=== PATIENT | male | born 1965 | race Caucasian/White ===

== ENCOUNTER 2016-05-07 12:14 | Emergency (ER) | payer MEDICARE, MEDICAID ==
[~2016-05-07] VITALS: Ht 167.6 cm; Wt 10.0 kg
[~2016-05-07 12:14] MED LIST: ANDROGEL75 G1 TD; ASPIR 8181 MG ORAL; ATORVASTATIN CA40 MG ORAL; BUPROPION HCL150 M3 ORAL; CIPRO500 MG PO; COZAAR25 MG ORAL; DIPHENOXYLATE-1 EACH PO; FANAPT8 MG ORAL; FERROUS SULFAT325 MG ORAL; GABAPENTIN600 MG ORAL; GABAPENTIN800 MG ORAL; HUMALOG100 UNIT/4 SUBQ; HYDROXYZINE PA100 MG ORAL; IBUPROFEN600 MG ORAL; INTELENCE200 MG ORAL; ISENTRESS400 MG ORAL; JANUVIA25 MG ORAL; KLONOPIN1 MG ORAL; LITHIUM CARBON300 MG ORAL; LITHIUM CARBON600 MG PO; METFORMIN HCL1000 M1 ORAL; METRONIDAZOLE500 MG ORAL; MULTIVITAMINS1 EAC2 ORAL; NOVOLOG100 UNIT/3 SUBQ; OXANDROLONE10 MG PO; OYSTER SHELL 51 EAC1 PO; PERFOROMIS20 MCG/2 M IH; PRO-AIR PO; PROCHLORPERAZINE5 MG ORAL; QUETIAPINE FUM400 MG ORAL; SARAFEM10 MG ORAL; SEROQUEL25 MG ORAL; SEROSTIM6 M1 SQ; STARLIX60 MG ORAL; STIOLTO RESPIMAT4 GM IH; SUDOGEST30 MG PO; TOUJEO SOL300 UNIT/1 SQ; TRUVADA 200 MG1 EAC1 ORAL; VALIUM5 MG ORAL; VENTOLIN HFA18 GM INH; VICTOZA 2-0.6 MG/0.1 SUBQ; VICTOZA 3-0.6 MG/0.1 SQ; VITAMIN D22000 UNIT PO; ZOFRAN ODT4 MG ORAL; [UNRECOGNIZED DRUG - OTHER] SUBQ; triumeq PO
[2016-05-07 12:45] VITALS: BP 140/80
[2016-05-07] MEDS ORDERED: Morphine Sulfate 4mg/ml Inj IM ONE (13:00)
--- NOTE | 2016-05-07 13:04 | Emergency Room Report ---
History of Present Illness General Chief Complaint: Abdominal Pain Source: Patient Present Illness HPI Patient present with complaints of abdominal discomfort swelling to the right side of his abdomen Patient was at [facility] yesterday the patient had been overnight stay He has CAT scan report along with blood results Patient reports that he was told he had pancreatitis The abdominal discomfort has been ongoing for the past several weeks Denies any chest pain or shortness of breath denies any diarrhea Allergies: Coded Allergies: No Known Allergies (Unverified , 06/15/13) Patient History Past Medical History: see triage record Pertinent Family History: none Reviewed Nursing Documentation: PMH: Agreed, PSxH: Agreed Nursing Documentation-PMH Hx Cardiac Problems: No Hx Hypertension: No Hx Pacemaker: No Hx Asthma: No Hx COPD: No Hx Diabetes: Yes Hx Cancer: No Hx Gastrointestinal Problems: Yes - HIV Hx Dialysis: No History Of Psychiatric Problem: No Hx Neurological Problems: No Hx Cerebrovascular Accident: No Hx Seizures: No Review of Systems All Other Systems: negative except mentioned in HPI Physical Exam Vital Signs Date Time Temp Pulse Resp B/P Pulse Ox O2 Delivery O2 Flow Rate FiO2 05/07/16 12:38 98.1 80 16 140/80 98 Room Air Sp02 EP Interpretation: reviewed, normal General Appearance: well appearing, no apparent distress Head: normocephalic, atraumatic Eyes: bilateral eye EOMI, bilateral eye PERRL ENT: hearing grossly normal, normal pharynx, TMs + canals normal, uvula midline Neck: full range of motion, supple, no meningismus, no bony tend Respiratory: lungs clear, normal breath sounds, no rhonchi, no respiratory distress, no retraction, no accessory muscle use Cardiovascular #1: normal peripheral pulses, regular rate, rhythm, no edema, no gallop, no JVD, no murmur Gastrointestinal: normal bowel sounds, non tender, soft, no mass, non-distended , no guarding, no hernia, no pulsatile mass, no rebound, hepatomegaly Genitourinary: no CVA tenderness Musculoskeletal: normal inspection Neurologic: oriented x3, responsive, 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 III-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 nml as tested, motor strength/ tone normal, sensory intact Psychiatric: mood/affect normal Skin: normal color, no rash, warm/dry, palpation normal Lymphatic: normal inspection, no adenopathy Medical Decision Making Diagnostic Impression: Primary Impression: Abdominal pain ER Course With the history exam and presentation, multiple differentials considered, including but not limited to appendicitis, gastritis, cholecystitis, diverticulitis I did make contact with the patient's primary physician reports that patient has had fairly significant outpatient workup has had hepatomegaly and similar findings which have been worked up outpatient Patient's CT from yesterday outside facility does not show any acute pathology therefore one was not repeated today patient's blood work including lipase are at baseline levels today patient does feel better and at this time will have close outpatient followup Labs Test 05/07/16 12:55 White Blood Count 10.1 K/UL (4.8-10.8) Red Blood Count 5.37 M/UL (4.70-6.10) Hemoglobin 15.2 G/DL (14.2-18.0) Hematocrit 50.2 % (42.0-52.0) Mean Corpuscular Volume 93 FL (80-99) Mean Corpuscular Hemoglobin 28.3 PG (27.0-31.0) Mean Corpuscular Hemoglobin Concent 30.3 G/DL (32.0-36.0) Red Cell Distribution Width 13.9 % (11.6-14.8) Platelet Count 235 K/UL (150-450) Mean Platelet Volume 8.0 FL (6.5-10.1) Neutrophils (%) (Auto) 59.3 % (45.0-75.0) Lymphocytes (%) (Auto) 30.0 % (20.0-45.0) Monocytes (%) (Auto) 5.3 % (1.0-10.0) Eosinophils (%) (Auto) 4.3 % (0.0-3.0) Basophils (%) (Auto) 1.0 % (0.0-2.0) Sodium Level 135 mEQ/L (135-145) Potassium Level 4.0 mEQ/L (3.4-4.9) Chloride Level 97 mEQ/L (98-107) Carbon Dioxide Level 21 mEQ/L (20-30) Anion Gap 17 (5-15) Blood Urea Nitrogen 14 mg/dL (7-23) Creatinine 1.7 mg/dL (0.7-1.2) Estimat Glomerular Filtration Rate 42.7 mL/min (>60) Glucose Level 255 mg/dL (74-106) Calcium Level 9.3 mg/dL (8.6-10.2) Total Bilirubin 0.3 mg/dL (0.0-1.2) Aspartate Amino Transf (AST/SGOT) 38 U/L (5-40) Alanine Aminotransferase (ALT/SGPT) 45 U/L (3-41) Alkaline Phosphatase 82 U/L (40-129) Total Protein 7.0 g/dL (6.6-8.7) Albumin 4.0 g/dL (3.5-5.2) Globulin 3.0 g/dL Albumin/Globulin Ratio 1.3 (1.0-2.7) Lipase 55 U/L (< 60) Last Vital Signs Date Time Temp Pulse Resp B/P Pulse Ox O2 Delivery O2 Flow Rate FiO2 05/07/16 12:45 98.1 80 16 140/80 98 Room Air Status: improved Disposition: HOME, SELF-CARE Condition: Improved Additional Instructions: Patient is provided with the discharge instructions notified to follow up with primary doctor in the next 2-3 days otherwise return to the er with any worsening symptoms. Please note that this report is being documented using [employer] technology. This can lead to erroneous entry secondary to incorrect interpretation by the dictating instrument. LUH PARKS D.O. May 07, 2016 13:04
[2016-05-07 13:13] LABS: EOSINOPHILS % (AUTO) 4.3 % (0.0-3.0); MEAN CORPUSCULAR HEMOGLOBIN 28.3 PG (27.0-31.0); MEAN CORPUSCULAR HGB CONC 30.3 G/DL (32.0-36.0); MEAN CORPUSCULAR VOLUME 93 FL (80-99); MONOCYTES % (AUTO) 5.3 % (1.0-10.0); NEUTROPHILS % (AUTO) 59.3 % (45.0-75.0); PLATELET COUNT 235 K/UL (150-450); RED BLOOD COUNT 5.37 M/UL (4.70-6.10); RED CELL DISTRIBUTION WIDTH 13.9 % (11.6-14.8); WHITE BLOOD COUNT 10.1 K/UL (4.8-10.8)
[2016-05-07 13:45] LABS: CREATININE 1.7 mg/dL (0.7-1.2); GLOMERULAR FILTRATION RATE 42.7 mL/min (>60)
[2016-05-07 13:46] LABS: ALBUMIN/GLOBULIN RATIO 1.3 (1.0-2.7); CALCIUM 9.3 mg/dL (8.6-10.2)
[2016-05-07 14:10] VITALS: BP 140/80
== END 2016-05-07 14:11 | disposition home or self-care (01) ==
LOC: EMR 13:30
DX: R10.9 Unspecified abdominal pain (principal); E11.9 Type 2 diabetes mellitus without complications
CPT/HCPCS: 36415; 80053; 83690; 85025; 96372; 99283; J2270

== ENCOUNTER → 2016-05-13 | Outpatient (CLI) | payer MEDICARE, MEDICAID ==
[2016-05-13 14:31] VITALS: BP 149/108
--- NOTE | 2016-05-13 15:40 | GI Initial Consult Note ---
JennLynette Estuardo NHimanshuPHimanshu 05/13/16 1540: History of Present Illness General Date patient seen: May 13, 2016 Time patient seen: 15:27 Reason for Consultation: FATTY LIVER Present Illness HPI 51 year old male patient whom recently discharged from the ER for c/o of abdominal pain and discomfort to the ride side of his abdomen presents today with evaluation of fatty liver. According to the ER report, the patient's primary physician reports that patient has had fairly significant outpatient workup has had hepatomegaly and similar findings which have been worked up outpatient. Patient's CT from [facility] outside facility does not show any acute pathology therefore his management was referred to outpatient. Pt c/o of right sided abdominal pain, GERD, diarrhea ~ 5-6 daily x 3 years, nausea, odynophagia , and abdominal bloating. Pt reports possible pancreatitis? The abdominal discomfort has been ongoing for the past several weeks Denies any chest pain or shortness of breath denies any diarrhea. Has currently been taking Z-pack, levaquin, and doxycyline. Last colonoscopy was 2 years ago with unremarkable results. 05/07/16 ER C 04/3016 [facility], APCT unremarkable - Glucose > 500 CD4 = 600 reported by patient Home Meds Reported Medications Sitagliptin* (JANUVIA*) 25 Mg Tablet, 100 MG ORAL DAILY, TAB 12/01/15 Metformin Hcl* (METFORMIN HCL*) 1,000 Mg Tablet, 1000 MG ORAL bid, TAB 12/01/15 Quetiapine Fumarate* (QUETIAPINE FUMARATE*) 400 Mg Tablet, 600 MG ORAL hs, TAB 12/01/15 Gabapentin* (GABAPENTIN*) 800 Mg Tablet, 1800 MG ORAL hs, TAB 12/01/15 Ciprofloxacin* (CIPRO*) 500 Mg Tablet, 500 MG PO BID, #14 TAB 12/01/15 Metronidazole* (FLAGYL*) 500 Mg Tablet, 500 MG ORAL EVERY 8 HOURS, TAB 12/01/15 Tesamorelin Acetate (EGRIFTA) 2 Mg Vial, 1 MG SUBQ DAILY, VIAL 12/01/15 Bupropion Hcl* (BUPROPION HCL SR*) 150 Mg Tablet.er, 300 MG ORAL am, TAB 12/01/15 Calcium Carbonate/Vitamin D3 (OYSTER SHELL 500 MG + VIT D TB) 1 Each Tablet, 1 EACH PO daily, TAB 12/01/15 Iloperidone (FANAPT) 8 Mg Tablet, 16 MG ORAL hs, #60 TAB 0 Refills 12/01/15 Prochlorperazine Maleate* (COMPAZINE*) 5 Mg Tablet, 10 MG ORAL Q6H, TAB 0 Refills 12/01/15 Formoterol Fumarate (PERFOROMIST) 20 Mcg/2 Ml Vial.neb, 20 MCG IH bid, VIAL 12/01/15 Ferrous Sulfate* (FERROUS SULFATE*) 325 Mg Tablet, 325 MG ORAL TWICE A DAY, #60 TAB 0 Refills 12/01/15 Nateglinide* (STARLIX*) 60 Mg Tablet, 120 MG ORAL THREE TIMES A DAY, TAB 12/01/15 Diphenoxylate Hcl/Atropine (DIPHENOXYLATE-ATROPINE TABLET) 1 Each Tablet, 2 EACH PO Q6H, TAB 12/01/15 Tiotropium Br/Olodaterol HCl (Stiolto Respimat Inhal [place]) 4 Gm Mist.inhal, 4 GM IH dailt 12/01/15 Liraglutide (VICTOZA 3-DAVID) 0.6 Mg/0.1 Ml Pen.injctr, 1.8 MG SQ DAILY, EA 0 Refills 12/01/15 Oxandrolone (OXANDROLONE) 10 Mg Tablet, 10 MG PO bid, TAB 12/01/15 Atorvastatin Calcium* (ATORVASTATIN CALCIUM*) 40 Mg Tablet, 40 MG ORAL BEDTIME, TAB 12/01/15 Aspirin* (ASPIR 81*) 81 Mg Tablet.dr, 81 MG ORAL DAILY, TAB 12/01/15 Multivitamins* (MULTIVITAMINS*) 1 Each Tablet, 1 TAB ORAL DAILY, TAB 0 Refills 12/01/15 Albuterol Sulfate (VENTOLIN HFA) 18 Gm Hfa.aer.ad, 2 PUFFS INH EVERY 6 HOURS, # 18 GM 0 Refills 12/01/15 Pseudoephedrine Hcl (SUDOGEST) 30 Mg Tablet, 30 MG PO Q6H, TAB 12/01/15 Ergocalciferol (Vitamin D2) (VITAMIN D2) 2,000 Unit Tablet, 46901 UNIT PO monthly, TAB 12/01/15 Hydroxyzine Pamoate* (HYDROXYZINE PAMOATE*) 100 Mg Capsule, 50 MG ORAL tid, #20 TAB 0 Refills 12/01/15 Insulin Glargine,Hum.rec.anlog (Toujeo Solostar) 300 Unit/1 Ml Insuln.pen, 70 UNIT SQ daily, EA 12/01/15 Insulin Lispro (HUMALOG) 100 Unit/1 Ml Cartridge, 16 SUBQ tid, #1 UNITS 0 Refills 12/01/15 Somatropin (SEROSTIM) 6 Mg Vial, 6 MG SQ daily, VIAL 12/01/15 Losartan Potassium* (COZAAR*) 25 Mg Tablet, 50 MG ORAL bid, TAB 05/20/14 Clonazepam* (KLONOPIN*) 1 Mg Tablet, MG ORAL hs, #15 TAB 0 Refills 06/15/13 [place] Carbonate (LITHIUM CARBONATE) 600 Mg Capsule, 900 MG PO QHS, CAP 06/15/13 [place] Carbonate* (LITHIUM*) 300 Mg Capsule, 600 MG ORAL am, CAP 0 Refills 06/15/13 Med list reviewed/reconciled: Yes Allergies: Coded Allergies: No Known Allergies (Unverified , 06/15/13) Patient History History Provided By: Patient, Medical Record PMH Narrative Hx Cardiac Problems: No Hx Hypertension: No Hx Pacemaker: No Hx Asthma: No Hx COPD: Asthma Hx Diabetes: Yes Hx Cancer: No Hx Gastrointestinal Problems: Yes - HIV, IBS, GERD Hx Dialysis: No History Of Psychiatric Problem: Yes, depression, nervous breakdown Hx Neurological Problems: No Hx Cerebrovascular Accident: No Hx Seizures: No PSHx 2016 cholecystectomy Social History: Reports: other - Pt has quit ETOH and smoking 6.5 years ago., Denies: alcohol use, drug use, smoking Review of Systems All Other Systems: negative except mentioned in HPI Physical Exam Vital Signs Date Time Temp Pulse Resp B/P Pulse Ox O2 Delivery O2 Flow Rate FiO2 05/13/16 14:31 98.1 110 20 149/108 96 Sp02 EP Interpretation: reviewed General Appearance: well appearing, no apparent distress, alert Head: normocephalic EENT: PERRL/EOMI, normal ENT inspection Neck: full range of motion, supple Respiratory: normal inspection, chest non-tender, lungs clear Gastrointestinal: distended, tenderness, hepatomegaly, other - abdominal bloating Rectal: deferred Musculoskeletal: normal inspection, back normal Neurologic: normal inspection, alert, oriented x3, responsive Psychiatric: normal inspection, judgement/insight normal, memory normal Skin: normal inspection, normal color, no rash Lymphatic: normal inspection, no adenopathy GI: Plan Problems: (1) Diarrhea (2) IBS (irritable bowel syndrome) (3) Diabetes 1.5, managed as type 1 (4) HIV (human immunodeficiency virus infection) (5) GERD (gastroesophageal reflux disease) (6) Asthma (7) Depressed (8) HTN (hypertension) (9) Abdominal bloating (10) Fatty liver (11) Odynophagia Plan avoid lactulose refer to Dr. Menjivar for fibroscan refer for DM mgmt ordered breathtest @ [facility] ordered videoswallow study @ [facility] RTC x 2 weeks post procedures Seen with Dr. Crain. CAMILO CRAIN 05/14/16 0945: History of Present Illness Present Illness Home Meds Reported Medications Sitagliptin* (JANUVIA*) 25 Mg Tablet, 100 MG ORAL DAILY, TAB 12/01/15 Metformin Hcl* (METFORMIN HCL*) 1,000 Mg Tablet, 1000 MG ORAL bid, TAB 12/01/15 Quetiapine Fumarate* (QUETIAPINE FUMARATE*) 400 Mg Tablet, 600 MG ORAL hs, TAB 12/01/15 Gabapentin* (GABAPENTIN*) 800 Mg Tablet, 1800 MG ORAL hs, TAB 12/01/15 Ciprofloxacin* (CIPRO*) 500 Mg Tablet, 500 MG PO BID, #14 TAB 12/01/15 Metronidazole* (FLAGYL*) 500 Mg Tablet, 500 MG ORAL EVERY 8 HOURS, TAB 12/01/15 Tesamorelin Acetate (EGRIFTA) 2 Mg Vial, 1 MG SUBQ DAILY, VIAL 12/01/15 Bupropion Hcl* (BUPROPION HCL SR*) 150 Mg Tablet.er, 300 MG ORAL am, TAB 12/01/15 Calcium Carbonate/Vitamin D3 (OYSTER SHELL 500 MG + VIT D TB) 1 Each Tablet, 1 EACH PO daily, TAB 12/01/15 Iloperidone (FANAPT) 8 Mg Tablet, 16 MG ORAL hs, #60 TAB 0 Refills 12/01/15 Prochlorperazine Maleate* (COMPAZINE*) 5 Mg Tablet, 10 MG ORAL Q6H, TAB 0 Refills 12/01/15 Formoterol Fumarate (PERFOROMIST) 20 Mcg/2 Ml Vial.neb, 20 MCG IH bid, VIAL 12/01/15 Ferrous Sulfate* (FERROUS SULFATE*) 325 Mg Tablet, 325 MG ORAL TWICE A DAY, #60 TAB 0 Refills 12/01/15 Nateglinide* (STARLIX*) 60 Mg Tablet, 120 MG ORAL THREE TIMES A DAY, TAB 12/01/15 Diphenoxylate Hcl/Atropine (DIPHENOXYLATE-ATROPINE TABLET) 1 Each Tablet, 2 EACH PO Q6H, TAB 12/01/15 Tiotropium Br/Olodaterol HCl (Stiolto Respimat Inhal [place]) 4 Gm Mist.inhal, 4 GM IH dailt 12/01/15 Liraglutide (VICTOZA 3-DAVID) 0.6 Mg/0.1 Ml Pen.injctr, 1.8 MG SQ DAILY, EA 0 Refills 12/01/15 Oxandrolone (OXANDROLONE) 10 Mg Tablet, 10 MG PO bid, TAB 12/01/15 Atorvastatin Calcium* (ATORVASTATIN CALCIUM*) 40 Mg Tablet, 40 MG ORAL BEDTIME, TAB 12/01/15 Aspirin* (ASPIR 81*) 81 Mg Tablet.dr, 81 MG ORAL DAILY, TAB 12/01/15 Multivitamins* (MULTIVITAMINS*) 1 Each Tablet, 1 TAB ORAL DAILY, TAB 0 Refills 12/01/15 Albuterol Sulfate (VENTOLIN HFA) 18 Gm Hfa.aer.ad, 2 PUFFS INH EVERY 6 HOURS, # 18 GM 0 Refills 12/01/15 Pseudoephedrine Hcl (SUDOGEST) 30 Mg Tablet, 30 MG PO Q6H, TAB 12/01/15 Ergocalciferol (Vitamin D2) (VITAMIN D2) 2,000 Unit Tablet, 65322 UNIT PO monthly, TAB 12/01/15 Hydroxyzine Pamoate* (HYDROXYZINE PAMOATE*) 100 Mg Capsule, 50 MG ORAL tid, #20 TAB 0 Refills 12/01/15 Insulin Glargine,Hum.rec.anlog (Toujeo Solostar) 300 Unit/1 Ml Insuln.pen, 70 UNIT SQ daily, EA 12/01/15 Insulin Lispro (HUMALOG) 100 Unit/1 Ml Cartridge, 16 SUBQ tid, #1 UNITS 0 Refills 12/01/15 Somatropin (SEROSTIM) 6 Mg Vial, 6 MG SQ daily, VIAL 12/01/15 Losartan Potassium* (COZAAR*) 25 Mg Tablet, 50 MG ORAL bid, TAB 05/20/14 Clonazepam* (KLONOPIN*) 1 Mg Tablet, MG ORAL hs, #15 TAB 0 Refills 06/15/13 [place] Carbonate (LITHIUM CARBONATE) 600 Mg Capsule, 900 MG PO QHS, CAP 06/15/13 [place] Carbonate* (LITHIUM*) 300 Mg Capsule, 600 MG ORAL am, CAP 0 Refills 06/15/13 Allergies: Coded Allergies: No Known Allergies (Unverified , 06/15/13) GI: Plan Plan The patient was seen and examined at bedside and all new and available data was reviewed in the patients chart. I agree with the above findings, impression and plan. (Patient seen earlier today. Signature stamp does not reflect patient encounter time.). -Camilo BarajasCob[facility] Estuardo N.PHimanshu May 13, 2016 15:40 CAMILO CRAIN May 14, 2016 09:45
== END | disposition home or self-care (01) ==
LOC: PAN 14:12
DX: K58.0 Irritable bowel syndrome with diarrhea (principal); E10.8 Type 1 diabetes mellitus with unspecified complications; K21.9 Gastro-esophageal reflux disease without esophagitis; J45.909 Unspecified asthma, uncomplicated; I10 Essential (primary) hypertension; R14.0 Abdominal distension (gaseous); K76.0 Fatty (change of) liver, not elsewhere classified; R13.10 Dysphagia, unspecified; R11.0 Nausea; Z79.82 Long term (current) use of aspirin; Z79.4 Long term (current) use of insulin; Z87.891 Personal history of nicotine dependence
CPT/HCPCS: 99201

== ENCOUNTER → 2016-05-26 | Outpatient (CLI) | payer MEDICARE, MEDICAID ==
[2016-05-26 15:05] VITALS: BP 139/102
--- NOTE | 2016-05-26 15:22 | GI Progress Note ---
Assessment/Plan Status: stable Status Narrative Seen with Dr. Crain. Assessment/Plan (1) Diarrhea (2) IBS (irritable bowel syndrome) (3) Diabetes 1.5, managed as type 1 (4) HIV (human immunodeficiency virus infection) (5) GERD (gastroesophageal reflux disease) (6) Asthma (7) Depressed (8) HTN (hypertension) (9) Abdominal bloating (10) Fatty liver (11) Odynophagia Plan avoid lactulose Fibroscan reviewed with patient >> F3 refer for DM mgmt patient breathtest @ [facility] fu videoswallow study @ [facility] RTC x s/p studies or 3 months. Subjective Subjective RUQ abdominal firmness/pain diarrhea over years, okay today PCP is Dr. Carreon confused at times Objective Last 24 Hour Vital Signs Date Time Temp Pulse Resp B/P Pulse Ox O2 Delivery O2 Flow Rate FiO2 05/26/16 15:05 98.0 97 16 139/102 95 General Appearance: no apparent distress, alert Cardiovascular: normal rate Respiratory/Chest: normal breath sounds, no respiratory distress Abdominal Exam: normal bowel sounds, non tender, soft, distended Extremities: normal range of motion Lynette Barajas N.P. May 26, 2016 15:22
== END | disposition home or self-care (01) ==
LOC: PAN 13:29
DX: R19.7 Diarrhea, unspecified (principal); K58.9 Irritable bowel syndrome, unspecified; E10.8 Type 1 diabetes mellitus with unspecified complications; K21.9 Gastro-esophageal reflux disease without esophagitis; J45.909 Unspecified asthma, uncomplicated; I10 Essential (primary) hypertension; F32.9 Major depressive disorder, single episode, unspecified; R14.0 Abdominal distension (gaseous); K76.0 Fatty (change of) liver, not elsewhere classified; R13.10 Dysphagia, unspecified
CPT/HCPCS: 99211

== ENCOUNTER 2016-05-29 20:35 | Inpatient (IN) | payer MEDICARE, MEDICAID ==
[~2016-05-29] VITALS: Ht 162.6 cm; Wt 77.1 kg
[2016-05-29 20:52] VITALS: BP 164/103
[2016-05-29] MEDS ORDERED: Morphine Sulfate 2mg/ml Inj IVP ONE (21:00)
[2016-05-29] MEDS ORDERED: Metoclopramide 10mg/2ml Inj IVP ONE (21:00)
[2016-05-29] MEDS ORDERED: DiphenhydrAMINE 50mg/ml Inj IVP ONE (21:00)
--- NOTE | 2016-05-29 21:13 | Emergency Room Report ---
History of Present Illness General Chief Complaint: Abdominal Pain Source: Patient, Medical Record (Denis Montano M.D.) Present Illness HPI Patient presents with abdominal pain and distention. He is usually told that he has liver problems. He was seen last week at [facility] and told he has a fatty liver. Ultrasound was not done. He states Ct not done (though later PMD states it was). He's not had an evaluation for hepatitis in the past. He's been vomiting and having diarrhea. The diarrhea is beige in color. He says weakness. Pain in abdomen is right lower quadrant and right flank pain that was severe today. It's constant but may be improving slightly. It is 9/10 at this time. His GI doctor is evaluating him and the possibility is that the liver is the problem. Ultrasound scheduled next week. Withdrawing from valium. Anxious about withdrawal. Diabetic. On insulin. Bipolar disorder. HIV - states CD4 600 and viral load undetectable. 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 (Denis Montano M.D.) Allergies: Coded Allergies: No Known Allergies (Unverified , 06/15/13) Patient History Past Medical History: see triage record, psych hx, HIV Social History: Reports: drug use - piror Social History Narrative at home Reviewed Nursing Documentation: PMH: Agreed, PSxH: Agreed (Denis Montano M.D.) Nursing Documentation-PMH Hx Cardiac Problems: No - HIV positive Hx Hypertension: Yes Hx Pacemaker: No Hx Asthma: Yes Hx COPD: No Hx Diabetes: Yes Hx Cancer: No Hx Gastrointestinal Problems: Yes Hx Dialysis: No - Liver disease Hx Neurological Problems: No Hx Cerebrovascular Accident: No Hx Seizures: No (Denis Montano M.D.) Review of Systems All Other Systems: negative except mentioned in HPI (Denis Montano M.D.) Physical Exam Vital Signs Date Time Temp Pulse Resp B/P Pulse Ox O2 Delivery O2 Flow Rate FiO2 05/29/16 20:45 98.2 116 16 164/103 95 Room Air Sp02 EP Interpretation: reviewed, normal General Appearance: well appearing, no apparent distress, GCS 15 Head: normocephalic Eyes: bilateral eye PERRL, bilateral eye normal inspection ENT: moist mucus membranes Neck: supple Respiratory: lungs clear, normal breath sounds Cardiovascular #1: regular rate, rhythm Cardiovascular #2: 2+ radial (R) Gastrointestinal: normal inspection, normal bowel sounds, no mass, no rebound, distended, guarding - RLQ, tenderness Musculoskeletal: back normal, gait/station normal, normal range of motion Neurologic: alert, oriented x3, grossly normal Psychiatric: anxious Skin: normal inspection, warm/dry (Denis Montano M.D.) Medical Decision Making Diagnostic Impression: Primary Impression: Abdominal pain Qualified Codes: R10.31 - Right lower quadrant pain Additional Impressions: Leukocytosis Qualified Codes: D72.829 - Elevated white blood cell count, unspecified Renal insufficiency HIV (human immunodeficiency virus infection) Hyperglycemia Diarrhea Qualified Codes: R19.7 - Diarrhea, unspecified Vomiting Qualified Codes: R11.2 - Nausea with vomiting, unspecified Benzodiazepine dependence Bipolar disorder Qualified Codes: F31.77 - Bipolar disorder, in partial remission, most recent episode mixed Lipodystrophy Fatty liver ER Course Patient presents with abdominal pain, vomiting and diarrhea. Ddx: appendicitis , ascites, hepatitis, lipodystrophy, diverticulitis, opportunistic GI infection , viral syndrome. Evaluation with labs, CT. Treatment with IV hydration and analgesia. Labs with leukocytosis, elevated lipase. Elevated glucose. Renal insufficiency. Discussed with Dr. Carreon. He states much is chronic - creat 2, distension , elevated glucose (takes steroids), lipase slightly elevated chronically. WBC elevation is new. CT ordered. Improved. Needs continued observation for pain and repeated evaluations. Admitted med Dr. Marquez. Signed out to Dr. Cedeno to review CT. Laboratory Tests Test 05/29/16 21:00 05/29/16 22:00 White Blood Count 15.5 K/UL (4.8-10.8) H Red Blood Count 5.80 M/UL (4.70-6.10) Hemoglobin 17.3 G/DL (14.2-18.0) Hematocrit 53.6 % (42.0-52.0) H Mean Corpuscular Volume 92 FL (80-99) Mean Corpuscular Hemoglobin 29.7 PG (27.0-31.0) Mean Corpuscular Hemoglobin Concent 32.2 G/DL (32.0-36.0) Red Cell Distribution Width 13.6 % (11.6-14.8) Platelet Count 246 K/UL (150-450) Mean Platelet Volume 7.2 FL (6.5-10.1) Neutrophils (%) (Auto) 77.8 % (45.0-75.0) H Lymphocytes (%) (Auto) 13.0 % (20.0-45.0) L Monocytes (%) (Auto) 7.2 % (1.0-10.0) Eosinophils (%) (Auto) 1.4 % (0.0-3.0) Basophils (%) (Auto) 0.6 % (0.0-2.0) Prothrombin Time 9.8 SEC (9.30-11.50) Prothrombin Time INR 1.0 (0.9-1.1) PTT 25 SEC (23-33) Sodium Level 138 mEQ/L (135-145) Potassium Level 4.0 mEQ/L (3.4-4.9) Chloride Level 98 mEQ/L (98-107) Carbon Dioxide Level 25 mEQ/L (20-30) Anion Gap 15 (5-15) Blood Urea Nitrogen 25 mg/dL (7-23) H Creatinine 2.2 mg/dL (0.7-1.2) H Estimate Glomerular Filtration Rate 31.7 mL/min (>60) Glucose Level 384 mg/dL (74-106) H Calcium Level 9.5 mg/dL (8.6-10.2) Total Bilirubin 0.3 mg/dL (0.0-1.2) Aspartate Amino Transferase (AST) 27 U/L (5-40) Alanine Aminotransferase (ALT) 35 U/L (3-41) Alkaline Phosphatase 103 U/L (40-129) Total Protein 8.0 g/dL (6.6-8.7) Albumin 4.7 g/dL (3.5-5.2) Globulin 3.3 g/dL Albumin/Globulin Ratio 1.4 (1.0-2.7) Lipase 95 U/L (< 60) H Hepatitis A IgM Antibody Pending Hepatitis B Surface Antigen Pending Hepatitis B Core IgM Antibody Pending Hepatitis C Antibody Pending Urine Color Pale yellow Urine Appearance Clear Urine pH 6 (4.5-8.0) Urine Specific [place] 1.015 (1.005-1.035) Urine Protein 3+ (NEGATIVE) H Urine Glucose (UA) 4+ (NEGATIVE) H Urine Ketones Negative (NEGATIVE) Urine Occult Blood 2+ (NEGATIVE) H Urine Nitrite Negative (NEGATIVE) Urine Bilirubin Negative (NEGATIVE) Urine Urobilinogen Normal MG/DL (0.0-1.0) Urine Leukocyte Esterase Negative (NEGATIVE) Urine RBC Pending Urine WBC Pending Urine Squamous Epithelial Cells Pending Urine Bacteria Pending (Dneis Montano M.D.) ER Course Patient signed out to me. He presents with abdominal pain and leukocytosis. CT scan was pending. CT was unremarkable per radiologist. Patient admitted. (MOHINI CEDENO M.D.) EKG Diagnostic Results Rate: tachycardiac ST Segments: no acute changes (Denis Montano M.D.) Rhythm Strip Diag. Results EP Interpretation: yes Rhythm: no PVC's, no ectopy, other - ST (Denis Montano M.D.) CT/MRI/US Diagnostic Results CT/MRI/US Diagnostic Results : Imaging Test Ordered: CT abdomen and pelvis Impression read by radiologist. Fatty liver with hepatomegaly. No acute process. (MOHINI CEDENO M.D.) Last Vital Signs Date Time Temp Pulse Resp B/P Pulse Ox O2 Delivery O2 Flow Rate FiO2 05/29/16 23:30 98.2 96 24 118/71 93 Room Air Status: improved (Denis Montano M.D.) Disposition: ADMITTED INPATIENT Condition: Serious Denis Montano M.D. May 29, 2016 21:13 MOHINI CEDENO M.D. May 30, 2016 00:38
[2016-05-29 21:29] LABS: BASOPHILS % (AUTO) 0.6 % (0.0-2.0); EOSINOPHILS % (AUTO) 1.4 % (0.0-3.0); MEAN CORPUSCULAR HEMOGLOBIN 29.7 PG (27.0-31.0); MEAN CORPUSCULAR HGB CONC 32.2 G/DL (32.0-36.0); MEAN CORPUSCULAR VOLUME 92 FL (80-99); MEAN PLATELET VOLUME 7.2 FL (6.5-10.1); MONOCYTES % (AUTO) 7.2 % (1.0-10.0); NEUTROPHILS % (AUTO) 77.8 % (45.0-75.0); PLATELET COUNT 246 K/UL (150-450); RED CELL DISTRIBUTION WIDTH 13.6 % (11.6-14.8); WHITE BLOOD COUNT 15.5 K/UL (4.8-10.8)
[2016-05-29 21:33] LABS: PROTHROMBIN TIME 9.8 SEC (9.30-11.50)
[2016-05-29 21:39] LABS: ALBUMIN/GLOBULIN RATIO 1.4 (1.0-2.7); CALCIUM 9.5 mg/dL (8.6-10.2); CREATININE 2.2 mg/dL (0.7-1.2); GLOMERULAR FILTRATION RATE 31.7 mL/min (>60)
[2016-05-29 22:00] VITALS: BP 126/83
[2016-05-29 22:42] LABS: APPEARANCE,URINE CLEAR; KETONES,URINE NEGATIVE (NEGATIVE); LEUKOCYTE ESTERASE ,URINE NEGATIVE (NEGATIVE); NITRITE,URINE NEGATIVE (NEGATIVE); PH,URINE 6 (4.5-8.0); PROTEIN,URINE 3+ (NEGATIVE); UROBILINOGEN,URINE NORMAL MG/DL (0.0-1.0)
[2016-05-29 23:00] VITALS: BP 118/71
[2016-05-29] MEDS ORDERED: LORazepam 1mg tab ORAL ONE (23:00)
[2016-05-29 23:03] LABS: BACTERIA,URINE FEW /HPF; WBC,URINE 0-2 /HPF (0 - 0)
[2016-05-29] MEDS ORDERED: DIAZEPAM10 MG ORAL (23:13)
[2016-05-29] MEDS ORDERED: FLONASE ALLERG9.9 ML NS (23:13)
[2016-05-29] MEDS ORDERED: NOVOLOG100 UNIT/4 SQ (23:13)
[2016-05-29] MEDS ORDERED: TOUJEO SOL300 UNIT/1 SQ (23:15)
[2016-05-29] MEDS ORDERED: HYDROmorphone 1mg/ml Carpuject IVP PRN (23:30)
[2016-05-29] MEDS ORDERED: Zolpidem 5mg tab ORAL PRN (23:30)
[2016-05-30] VITALS: BP 140/88
[2016-05-30 04:00] VITALS: BP 145/111
[2016-05-30 07:08] LABS: BASOPHILS % (AUTO) 0.9 % (0.0-2.0); EOSINOPHILS % (AUTO) 1.7 % (0.0-3.0); MEAN CORPUSCULAR HEMOGLOBIN 28.1 PG (27.0-31.0); MEAN CORPUSCULAR HGB CONC 30.8 G/DL (32.0-36.0); MEAN CORPUSCULAR VOLUME 91 FL (80-99); MEAN PLATELET VOLUME 7.5 FL (6.5-10.1); MONOCYTES % (AUTO) 5.6 % (1.0-10.0); NEUTROPHILS % (AUTO) 52.8 % (45.0-75.0); PLATELET COUNT 253 K/UL (150-450); RED BLOOD COUNT 5.32 M/UL (4.70-6.10); RED CELL DISTRIBUTION WIDTH 13.8 % (11.6-14.8); WHITE BLOOD COUNT 11.3 K/UL (4.8-10.8)
[2016-05-30 07:36] LABS: ALBUMIN/GLOBULIN RATIO 1.3 (1.0-2.7); CALCIUM 8.7 mg/dL (8.6-10.2); CREATININE 1.8 mg/dL (0.7-1.2); POTASSIUM 3.6 mEQ/L (3.4-4.9); TOTAL PROTEIN 6.8 g/dL (6.6-8.7)
[2016-05-30 08:00] VITALS: BP 150/109
--- NOTE | 2016-05-30 08:52 | Diagnostic Imaging Report ---
Indications: Abdominal pain and distention, history of liver disease and HIV positivity Technique: Continuous helical CT imaging of the abdomen and pelvis was performed with automatic exposure control following administration of oral contrast only, on a Siemens sensation [address] scanner. Axial images were reconstructed at 5 mm slice thickness and interval. Coronal images were reconstructed at 5 mm slice thickness. No IV contrast was administered , due to elevated BUN and creatinine levels. CTDI volume(s): 16 mGy Total DLP: 901 mGy-cm Findings: Comparison: None Lack of IV contrast limits evaluation, particularly of solid visceral parenchyma and vascular structures. Oral contrast is passed throughout the gastrointestinal tract to the level of the colonic splenic flexure. Entire tract nondilated. Appendix unremarkable. No obvious mural thickening, adjacent stranding, extraluminal gas or fluid collections. Liver measures 25 cm in length in the right mid clavicular line. It demonstrates diffusely decreased parenchymal attenuation. No obvious focal lesions are identified. Gallbladder absent. Surgical clips in gallbladder fossa. Spleen 13 cm in greatest diameter, no obvious focal lesions. Duplicated infrarenal inferior vena cava. Vascular patency indeterminate. Small umbilical and left inguinal hernias containing only fat. Pancreas, adrenal glands, kidneys, ureters, distended urinary bladder, prostate, seminal vesicles, retroperitoneum, mesentery, remainder visualized abdominopelvic anatomy demonstrates no other obvious acute abnormality. Small irregular pleural-based linear densities in both lung bases. No focal skeletal abnormality identified. Impression: No evidence of acute abdominopelvic disease or focal solid visceral parenchymal abnormality, limited by lack of IV contrast. Subtle abnormalities may be missed. Hepatosplenomegaly Hepatic steatosis Previous cholecystectomy Urinary bladder distention. Evaluate for outlet obstruction. Duplicated inferior vena cava, developmental variant Small fat-containing umbilical, left inguinal hernias Minimal pulmonary bibasal subsegmental atelectasis versus scarring This correlates with [facility] preliminary report.
[2016-05-30] MEDS ORDERED: Pantoprazole Inj IV SCH (09:00)
--- NOTE | 2016-05-30 10:10 | History & Physical ---
History and Physical History & Physicial HP dictated # [id number] POPPY SONG May 30, 2016 10:10
[2016-05-30] MEDS ORDERED: DIAZEPAM10 MG ORAL ×2 (10:36→10:38)
[2016-05-30] MEDS ORDERED: Nateglinide 60mg tab ORAL SCH (11:30)
[2016-05-30] MEDS ORDERED: metFORMIN 500mg tab ORAL SCH (11:30)
[2016-05-30] MEDS: BuPROPion XL 150mg tab ORAL SCH ×2 (11:30→11:36)
[2016-05-30] MEDS: OXANDROLONE ORAL SCH ×2 (11:30→11:36)
[2016-05-30] MEDS: Aspirin EC 81mg tab ORAL SCH (11:36)
[2016-05-30] MEDS: Losartan 50mg tab ORAL SCH ×2 (11:36→21:18)
[2016-05-30] MEDS ORDERED: triumeq ORAL (11:57)
[2016-05-30 12:00] VITALS: BP 144/99
[2016-05-30] MEDS: NovoLOG Insulin Flexpen SUBQ SCH ×3 (12:27→21:29)
[2016-05-30 16:00] VITALS: BP 135/95
[2016-05-30] MEDS ORDERED: QUETIAPINE FUM200 MG ORAL (16:05)
[2016-05-30] MEDS ORDERED: Morphine Sulfate 4mg/ml Inj IVP PRN (18:45)
[2016-05-30] MEDS ORDERED: DiphenhydrAMINE 50mg/ml Inj IVP PRN (18:45)
[2016-05-30 19:00] VITALS: BP 143/92
--- NOTE | 2016-05-30 20:48 | History and Physical Report ---
DATE OF ADMISSION: 05/29/2016 CHIEF COMPLAINT: Abdominal pain. HISTORY OF PRESENT ILLNESS: This is a 51-year-old male, who states that he has a history of fatty liver. He had a lunch of sandwich yesterday and about 15 minutes later, he started having severe abdominal pain, which was located in the right upper quadrant and he said that he started having also diarrhea after that. He came to the emergency room. Currently, he feels better. He was admitted for work up. PAST MEDICAL HISTORY: Also includes HIV, history of bipolar disorder, diabetes mellitus, and history of asthma. SOCIAL HISTORY: No history of smoking or alcohol abuse. ALLERGIES: No known drug allergies. REVIEW OF SYSTEMS: Noncontributory except above. PHYSICAL EXAMINATION: GENERAL: The patient is a pleasant male, in no acute distress. VITAL SIGNS: In the emergency room, blood pressure was 164/103, pulse 116, respiratory rate 16, and temperature 98.2 degrees. HEENT: [place] conjunctivae. Anicteric sclerae. NECK: Supple. LUNGS: Clear to auscultation. HEART: S1 and S2 without murmurs or rubs. ABDOMEN: Soft and nontender. EXTREMITIES: No cyanosis or edema. LABORATORY FINDINGS: CBC in the emergency room showed WBC of 15.5, hematocrit 53.6, hemoglobin 17.3, and platelets of 246,000. Chemistry panel showed a serum sodium 138, potassium 4, chloride 98, BUN 25, creatinine 2.2, and blood sugar 384. Today, the creatinine is down to 1.8. UA was unremarkable except 3+ protein and 4+ glucose. ASSESSMENT: This is a 51-year-old male with history of human- immunodeficiency virus, history of fatty liver, and bipolar disorder, who presents with abdominal pain, vomiting, and some diarrhea, possible acute gastroenteritis. He has also acute renal failure, which has improved. The question is if he has also underlying chronic kidney disease. He does have 3+ protein and I am assuming that he has also diabetic nephropathy. He has also leukocytosis, so far there is no clear source of infection. His CT of the abdomen showed absent gallbladder and indeed he has had cholecystectomy before. The cholecystitis would be at the top of the differential diagnosis based on his symptoms and the location of the pain, and as mentioned, the gallbladder was absent, nevertheless, the common bile duct stone is a remote possibility. PLAN: The patient will be hydrated. His medications will be adjusted. He will be seen by GI residential solar sales consultant and further studies may be necessary such as abdominal ultrasound. Paramjit Marquez M.D. DR: Maximino JOB#: [id number] CC:
[2016-05-30] MEDS ORDERED: QUEtiapine 200mg tab ORAL SCH (21:00)
[2016-05-30] MEDS: QUEtiapine 200mg tab ORAL SCH (21:18)
[2016-05-30] MEDS: Morphine Sulfate 2mg/ml Inj IVP PRN (21:37)
--- NOTE | 2016-05-30 23:48 | Consultation ---
DATE OF CONSULTATION: 05/30/2016 CONSULTING PHYSICIAN: Camilo Crain M.D. CHIEF COMPLAINT: Nausea, vomiting, and diarrhea. HISTORY OF PRESENT ILLNESS: The patient is a 51-year-old male, one of my office patients. He has a history of HIV, history of right-sided abdominal pain, for which we did a workup. He had evidence of fatty liver. He had a FibroScan done, which has stage III fibrosis. The patient has been having some difficulty with swallowing. We are trying to get a swallow evaluation as an outpatient, which was not successful. The patient was mainly admitted because of one day of nausea, vomiting, and watery diarrhea. In the ER, the patient was found to be dehydrated and admitted. PAST MEDICAL HISTORY: Significant for history of HIV, history of diabetes, history of fatty liver, history of asthma, hypertension, history of cholecystectomy, history of bipolar disorder, history of remission HIV, prior history of substance abuse, and IBS. ALLERGIES: No known drug allergies. MEDICATIONS: Please see medication reconciliation list. PAST SURGICAL HISTORY: Cholecystectomy. FAMILY HISTORY: Noncontributory. SOCIAL HISTORY: The patient was a smoker, quit in 2010. Denies any recent IV drug abuse or alcohol abuse. REVIEW OF SYSTEMS: A 10-point review of systems was performed and pertinent positives in history of present illness. PHYSICAL EXAMINATION: GENERAL: A well-developed male, in no acute distress. VITAL SIGNS: Most recent vital signs, temperature 97.9, pulse 83, respirations 20, and blood pressure is 150/109. HEENT: Normocephalic and atraumatic. Sclerae nonicteric. NECK: Supple. No lymphadenopathy. CARDIOVASCULAR: Regular rate and rhythm. Plus S1 and S2. LUNGS: Clear to auscultation bilaterally. ABDOMINAL: Abdomen is soft. There is a minimal tenderness to palpation in the epigastric area and right upper quadrant. No rebound. No guarding. No peritoneal signs. EXTREMITIES: No cyanosis. No clubbing. No edema. LABORATORY AND DIAGNOSTIC DATA: White blood cell count 11.3, hemoglobin 15, hematocrit 48, plus platelet count is 253,000. Chem-7 - BUN is 18, creatinine is 1.8, glucose is 202, lipase is 95. CT of the abdomen and pelvis does not show any acute intra-abdominal process. ASSESSMENT AND PLAN: The patient is a 51 years old male with numerous medical problems. At this time, seems to have gastroenteritis most probably from a fast food ingestion that he had. Even he had nausea ,vomiting, diarrhea, dehydration. The patient denies any recent antibiotic usage. Plan is to hydrate him, repeat laboratories, and advance his diet. We will send the stool cultures. Repeat amylase and lipase for tomorrow. We will order swallow evaluation while the patient in the hospital. Camilo Crain M.D. DR: MARIELA JOB#: [id number] CC:
[2016-05-31] MEDS: Morphine Sulfate 2mg/ml Inj IVP PRN ×3 (03:38→15:08)
[2016-05-31] MEDS: NovoLOG Insulin Flexpen SUBQ SCH ×4 (06:13→21:07)
[2016-05-31 07:32] LABS: EOSINOPHILS % (AUTO) 2.8 % (0.0-3.0); LYMPHOCYTES % (AUTO) 37.5 % (20.0-45.0); MEAN CORPUSCULAR HEMOGLOBIN 28.9 PG (27.0-31.0); MEAN CORPUSCULAR VOLUME 93 FL (80-99); MEAN PLATELET VOLUME 7.3 FL (6.5-10.1); MONOCYTES % (AUTO) 5.8 % (1.0-10.0); NEUTROPHILS % (AUTO) 52.9 % (45.0-75.0); PLATELET COUNT 206 K/UL (150-450); RED BLOOD COUNT 4.83 M/UL (4.70-6.10); RED CELL DISTRIBUTION WIDTH 14.1 % (11.6-14.8); WHITE BLOOD COUNT 7.3 K/UL (4.8-10.8)
[2016-05-31 07:50] LABS: CALCIUM 8.9 mg/dL (8.6-10.2); GLOMERULAR FILTRATION RATE 35.4 mL/min (>60)
[2016-05-31 08:11] VITALS: BP 119/73
[2016-05-31] MEDS: Losartan 50mg tab ORAL SCH ×2 (08:24→21:02)
[2016-05-31] MEDS: Aspirin EC 81mg tab ORAL SCH (08:24)
[2016-05-31 12:15] VITALS: BP 140/98
--- NOTE | 2016-05-31 12:57 | GI Progress Note ---
Assessment/Plan Problems: (1) Fatty liver ICD Codes: K76.0 - Fatty (change of) liver, not elsewhere classified SNOMED: 312230254 (2) HIV (human immunodeficiency virus infection) ICD Codes: Z21 - Asymptomatic human immunodeficiency virus [HIV] infection status SNOMED: 93441048 (3) Abdominal pain ICD Codes: R10.9 - Unspecified abdominal pain SNOMED: 17342895 Qualifiers: Qualified Codes: R10.31 - Right lower quadrant pain (4) Diarrhea ICD Codes: R19.7 - Diarrhea, unspecified SNOMED: 50698544 Qualifiers: Qualified Codes: R19.7 - Diarrhea, unspecified (5) Vomiting ICD Codes: R11.10 - Vomiting, unspecified SNOMED: 481598851, 27802701 Qualifiers: Qualified Codes: R11.2 - Nausea with vomiting, unspecified (6) IBS (irritable bowel syndrome) ICD Codes: K58.9 - Irritable bowel syndrome without diarrhea SNOMED: 60009646, 53603119 (7) GERD (gastroesophageal reflux disease) ICD Codes: K21.9 - Gastro-esophageal reflux disease without esophagitis SNOMED: 150534337 Status: unchanged Status Narrative Discussed with Dr Crain. Assessment/Plan APCT reviewed >> No evidence of acute abdominopelvic disease or focal solid visceral parenchymal abnormality, limited by lack of IV contrast. Subtle abnormalities may be missed. Hepatosplenomegaly. Hepatic steatosis. See full report. cdiff negative elevated lipase >> now normal s/p fibroid scan >> stage III fibrosis ADA diet, tolerating fu ST eval fu hep panel DM mgmt pain mgmt H2 fu labs Subjective Gastrointestinal/Abdominal: Reports: abdomen distended, abdominal pain - RLQ Objective Last 24 Hour Vital Signs Date Time Temp Pulse Resp B/P Pulse Ox O2 Delivery O2 Flow Rate FiO2 05/31/16 12:15 96.6 19 140/98 93 Room Air 05/31/16 08:53 97.9 05/31/16 08:24 119/73 05/31/16 08:11 97.9 86 20 119/73 Room Air 05/30/16 21:18 143/92 05/30/16 19:00 97.2 79 20 143/92 97 Room Air 05/30/16 16:00 97.9 85 20 135/95 95 Room Air Intake and Output 05/30/16 05/31/16 19:00 07:00 Intake Total 1100 ml 480 ml Balance 1100 ml 480 ml Intake Oral 1100 ml 480 ml # Voids 8 4 # Bowel Movements 1 1 Laboratory Tests Test 05/31/16 05:51 White Blood Count 7.3 K/UL (4.8-10.8) Red Blood Count 4.83 M/UL (4.70-6.10) Hemoglobin 14.0 G/DL (14.2-18.0) L Hematocrit 45.0 % (42.0-52.0) Mean Corpuscular Volume 93 FL (80-99) Mean Corpuscular Hemoglobin 28.9 PG (27.0-31.0) Mean Corpuscular Hemoglobin Concent 31.0 G/DL (32.0-36.0) L Red Cell Distribution Width 14.1 % (11.6-14.8) Platelet Count 206 K/UL (150-450) Mean Platelet Volume 7.3 FL (6.5-10.1) Neutrophils (%) (Auto) 52.9 % (45.0-75.0) Lymphocytes (%) (Auto) 37.5 % (20.0-45.0) Monocytes (%) (Auto) 5.8 % (1.0-10.0) Eosinophils (%) (Auto) 2.8 % (0.0-3.0) Basophils (%) (Auto) 1.0 % (0.0-2.0) Sodium Level 140 mEQ/L (135-145) Potassium Level 4.0 mEQ/L (3.4-4.9) Chloride Level 101 mEQ/L (98-107) Carbon Dioxide Level 23 mEQ/L (20-30) Anion Gap 16 (5-15) H Blood Urea Nitrogen 19 mg/dL (7-23) Creatinine 2.0 mg/dL (0.7-1.2) H Estimat Glomerular Filtration Rate 35.4 mL/min (>60) Glucose Level 373 mg/dL (74-106) #H Calcium Level 8.9 mg/dL (8.6-10.2) Amylase Level 47 U/L (10-110) Lipase 54 U/L (< 60) Height (Feet): 5 Height (Inches): 4.00 Weight (Pounds): 170 General Appearance: no apparent distress, alert Cardiovascular: normal rate Respiratory/Chest: no respiratory distress Abdominal Exam: distended, tender - RLQ Extremities: normal range of motion Lynette Barajas N.P. May 31, 2016 12:57
[2016-05-31 15:06] VITALS: BP 113/66
--- NOTE | 2016-05-31 15:40 | General Progress Note ---
Assessment/Plan Problem List: (1) GERD (gastroesophageal reflux disease) ICD Codes: K21.9 - Gastro-esophageal reflux disease without esophagitis SNOMED: 517224623 (2) Fatty liver ICD Codes: K76.0 - Fatty (change of) liver, not elsewhere classified SNOMED: 577403227 (3) IBS (irritable bowel syndrome) ICD Codes: K58.9 - Irritable bowel syndrome without diarrhea SNOMED: 47676742, 12606690 (4) HIV (human immunodeficiency virus infection) ICD Codes: Z21 - Asymptomatic human immunodeficiency virus [HIV] infection status SNOMED: 17411375 (5) Abdominal pain ICD Codes: R10.9 - Unspecified abdominal pain SNOMED: 10719985 Qualifiers: Qualified Codes: R10.31 - Right lower quadrant pain (6) Diarrhea ICD Codes: R19.7 - Diarrhea, unspecified SNOMED: 65080214 Qualifiers: Qualified Codes: R19.7 - Diarrhea, unspecified (7) Acute gastroenteritis ICD Codes: K52.9 - Noninfective gastroenteritis and colitis, unspecified SNOMED: 48883490 Assessment/Plan diet per GI antiemetics pain meds DC when OK by GI Subjective Allergies: Coded Allergies: No Known Allergies (Unverified , 06/15/13) Subjective C/O nausea Objective Last 24 Hour Vital Signs Date Time Temp Pulse Resp B/P Pulse Ox O2 Delivery O2 Flow Rate FiO2 05/31/16 15:06 97.9 81 20 113/66 Room Air 05/31/16 12:15 96.6 19 140/98 93 Room Air 05/31/16 08:53 97.9 05/31/16 08:24 119/73 05/31/16 08:11 97.9 86 20 119/73 Room Air 05/30/16 21:18 143/92 05/30/16 19:00 97.2 79 20 143/92 97 Room Air 05/30/16 16:00 97.9 85 20 135/95 95 Room Air Intake and Output 05/30/16 05/31/16 19:00 07:00 Intake Total 1100 ml 480 ml Balance 1100 ml 480 ml Intake Oral 1100 ml 480 ml # Voids 8 4 # Bowel Movements 1 1 Laboratory Tests 05/31/16 05:51: White Blood Count 7.3, Red Blood Count 4.83, Hemoglobin 14.0L, Hematocrit 45.0, Mean Corpuscular Volume 93, Mean Corpuscular Hemoglobin 28.9, Mean Corpuscular Hemoglobin Concent 31.0L, Red Cell Distribution Width 14.1, Platelet Count 206, Mean Platelet Volume 7.3, Neutrophils (%) (Auto) 52.9, Lymphocytes (%) (Auto) 37.5, Monocytes (%) (Auto) 5.8, Eosinophils (%) (Auto) 2.8, Basophils (%) (Auto ) 1.0, Sodium Level 140, Potassium Level 4.0, Chloride Level 101, Carbon Dioxide Level 23, Anion Gap 16H, Blood Urea Nitrogen 19, Creatinine 2.0H, Estimat Glomerular Filtration Rate 35.4, Glucose Level 373#H, Calcium Level 8.9 , Amylase Level 47, Lipase 54 Height (Feet): 5 Height (Inches): 4.00 Weight (Pounds): 170 Cardiovascular: normal rate Respiratory/Chest: lungs clear Abdomen: soft POPPY SONG May 31, 2016 15:40
[2016-05-31 20:00] VITALS: BP 144/103
[2016-05-31] MEDS: QUEtiapine 200mg tab ORAL SCH (21:00)
[2016-06-01] VITALS: BP 118/69
[2016-06-01] MEDS: NovoLOG Insulin Flexpen SUBQ SCH ×4 (06:52→21:26)
[2016-06-01 07:07] LABS: CALCIUM 9.1 mg/dL (8.6-10.2); CREATININE 1.6 mg/dL (0.7-1.2); GLOMERULAR FILTRATION RATE 45.8 mL/min (>60); POTASSIUM 4.4 mEQ/L (3.4-4.9)
[2016-06-01 07:30] LABS: BASOPHILS % (AUTO) 0.8 % (0.0-2.0); EOSINOPHILS % (AUTO) 3.8 % (0.0-3.0); LYMPHOCYTES % (AUTO) 34.3 % (20.0-45.0); MEAN CORPUSCULAR HEMOGLOBIN 28.5 PG (27.0-31.0); MEAN CORPUSCULAR VOLUME 92 FL (80-99); MEAN PLATELET VOLUME 7.6 FL (6.5-10.1); MONOCYTES % (AUTO) 5.9 % (1.0-10.0); NEUTROPHILS % (AUTO) 55.2 % (45.0-75.0); PLATELET COUNT 219 K/UL (150-450); RED BLOOD COUNT 5.35 M/UL (4.70-6.10); RED CELL DISTRIBUTION WIDTH 13.6 % (11.6-14.8); WHITE BLOOD COUNT 9.4 K/UL (4.8-10.8)
[2016-06-01 07:54] VITALS: BP 112/77
[2016-06-01] MEDS: Losartan 50mg tab ORAL SCH ×2 (08:21→21:25)
[2016-06-01] MEDS: Aspirin EC 81mg tab ORAL SCH (08:21)
--- NOTE | 2016-06-01 09:53 | GI Progress Note ---
Assessment/Plan Problems: (1) Fatty liver ICD Codes: K76.0 - Fatty (change of) liver, not elsewhere classified SNOMED: 804410319 (2) HIV (human immunodeficiency virus infection) ICD Codes: Z21 - Asymptomatic human immunodeficiency virus [HIV] infection status SNOMED: 74345616 (3) Abdominal pain ICD Codes: R10.9 - Unspecified abdominal pain SNOMED: 43642128 Qualifiers: Qualified Codes: R10.31 - Right lower quadrant pain (4) Diarrhea ICD Codes: R19.7 - Diarrhea, unspecified SNOMED: 90096167 Qualifiers: Qualified Codes: R19.7 - Diarrhea, unspecified (5) Vomiting ICD Codes: R11.10 - Vomiting, unspecified SNOMED: 727200741, 51207594 Qualifiers: Qualified Codes: R11.2 - Nausea with vomiting, unspecified (6) IBS (irritable bowel syndrome) ICD Codes: K58.9 - Irritable bowel syndrome without diarrhea SNOMED: 32354604, 84753835 (7) GERD (gastroesophageal reflux disease) ICD Codes: K21.9 - Gastro-esophageal reflux disease without esophagitis SNOMED: 238653811 Status: stable Status Narrative Discussed with Dr. Crain. Assessment/Plan APCT reviewed >> No evidence of acute abdominopelvic disease or focal solid visceral parenchymal abnormality, limited by lack of IV contrast. Subtle abnormalities may be missed. Hepatosplenomegaly. Hepatic steatosis. See full report. cdiff negative elevated lipase >> now normal s/p fibroid scan >> stage III fibrosis hep panel negative ok for DC per GI standpoint, will fu as outpatient ADA diet, tolerating fu ST eval DM mgmt pain mgmt H2 fu labs Subjective Subjective abdominal pain resolved Objective Last 24 Hour Vital Signs Date Time Temp Pulse Resp B/P Pulse Ox O2 Delivery O2 Flow Rate FiO2 06/01/16 08:21 112/77 06/01/16 07:54 97.7 92 19 112/77 95 Room Air 06/01/16 00:00 96.9 90 17 118/69 Room Air 05/31/16 21:02 144/103 05/31/16 20:00 96.6 89 18 144/103 95 Room Air 05/31/16 15:35 97.9 05/31/16 15:06 97.9 81 20 113/66 Room Air 05/31/16 12:15 96.6 19 140/98 93 Room Air Intake and Output 05/31/16 06/01/16 18:59 06:59 Intake Total 1240 ml 930 ml Balance 1240 ml 930 ml Intake Oral 1240 ml 180 ml IV Total 750 ml # Voids 3 2 # Bowel Movements 1 Laboratory Tests Test 06/01/16 05:50 White Blood Count 9.4 K/UL (4.8-10.8) Red Blood Count 5.35 M/UL (4.70-6.10) Hemoglobin 15.3 G/DL (14.2-18.0) Hematocrit 49.4 % (42.0-52.0) Mean Corpuscular Volume 92 FL (80-99) Mean Corpuscular Hemoglobin 28.5 PG (27.0-31.0) Mean Corpuscular Hemoglobin Concent 31.0 G/DL (32.0-36.0) L Red Cell Distribution Width 13.6 % (11.6-14.8) Platelet Count 219 K/UL (150-450) Mean Platelet Volume 7.6 FL (6.5-10.1) Neutrophils (%) (Auto) 55.2 % (45.0-75.0) Lymphocytes (%) (Auto) 34.3 % (20.0-45.0) Monocytes (%) (Auto) 5.9 % (1.0-10.0) Eosinophils (%) (Auto) 3.8 % (0.0-3.0) H Basophils (%) (Auto) 0.8 % (0.0-2.0) Sodium Level 142 mEQ/L (135-145) Potassium Level 4.4 mEQ/L (3.4-4.9) Chloride Level 104 mEQ/L (98-107) Carbon Dioxide Level 25 mEQ/L (20-30) Anion Gap 13 (5-15) Blood Urea Nitrogen 17 mg/dL (7-23) Creatinine 1.6 mg/dL (0.7-1.2) H Estimat Glomerular Filtration Rate 45.8 mL/min (>60) Glucose Level 322 mg/dL (74-106) H Calcium Level 9.1 mg/dL (8.6-10.2) Height (Feet): 5 Height (Inches): 4.00 Weight (Pounds): 170 General Appearance: no apparent distress, alert Cardiovascular: normal rate Respiratory/Chest: normal breath sounds, no respiratory distress Abdominal Exam: normal bowel sounds, non tender, soft Extremities: normal range of motion Lynette Barajas N.P. Jun 01, 2016 09:53
[2016-06-01 11:49] VITALS: BP 118/82
[2016-06-01] MEDS: Morphine Sulfate 2mg/ml Inj IVP PRN (14:03)
--- NOTE | 2016-06-01 14:45 | General Progress Note ---
Assessment/Plan Problem List: (1) GERD (gastroesophageal reflux disease) ICD Codes: K21.9 - Gastro-esophageal reflux disease without esophagitis SNOMED: 207024045 (2) Fatty liver ICD Codes: K76.0 - Fatty (change of) liver, not elsewhere classified SNOMED: 016472016 (3) IBS (irritable bowel syndrome) ICD Codes: K58.9 - Irritable bowel syndrome without diarrhea SNOMED: 83559332, 69859778 (4) HIV (human immunodeficiency virus infection) ICD Codes: Z21 - Asymptomatic human immunodeficiency virus [HIV] infection status SNOMED: 58361120 (5) Abdominal pain ICD Codes: R10.9 - Unspecified abdominal pain SNOMED: 61009307 Qualifiers: Qualified Codes: R10.31 - Right lower quadrant pain (6) Diarrhea ICD Codes: R19.7 - Diarrhea, unspecified SNOMED: 55546158 Qualifiers: Qualified Codes: R19.7 - Diarrhea, unspecified (7) Acute gastroenteritis ICD Codes: K52.9 - Noninfective gastroenteritis and colitis, unspecified SNOMED: 69489469 (8) Acute on chronic renal failure Assessment & Plan: better ICD Codes: N17.9 - Acute kidney failure, unspecified; N18.9 - Chronic kidney disease, unspecified SNOMED: 677924735 Assessment/Plan diet per GI antiemetics pain meds DC when OK by GI. will discuss Subjective Allergies: Coded Allergies: No Known Allergies (Unverified , 06/15/13) Subjective C/O RUQ abd pain Objective Last 24 Hour Vital Signs Date Time Temp Pulse Resp B/P Pulse Ox O2 Delivery O2 Flow Rate FiO2 06/01/16 14:38 97.3 06/01/16 11:49 97.3 84 19 118/82 95 Room Air 06/01/16 08:21 112/77 06/01/16 07:54 97.7 92 19 112/77 95 Room Air 06/01/16 00:00 96.9 90 17 118/69 Room Air 05/31/16 21:02 144/103 05/31/16 20:00 96.6 89 18 144/103 95 Room Air 05/31/16 15:06 97.9 81 20 113/66 Room Air Intake and Output 05/31/16 06/01/16 19:00 07:00 Intake Total 1240 ml 930 ml Balance 1240 ml 930 ml Intake Oral 1240 ml 180 ml IV Total 750 ml # Voids 3 2 # Bowel Movements 1 Laboratory Tests 06/01/16 05:50: White Blood Count 9.4, Red Blood Count 5.35, Hemoglobin 15.3, Hematocrit 49.4, Mean Corpuscular Volume 92, Mean Corpuscular Hemoglobin 28.5, Mean Corpuscular Hemoglobin Concent 31.0L, Red Cell Distribution Width 13.6, Platelet Count 219, Mean Platelet Volume 7.6, Neutrophils (%) (Auto) 55.2, Lymphocytes (%) (Auto) 34.3, Monocytes (%) (Auto) 5.9, Eosinophils (%) (Auto) 3.8H, Basophils (%) (Auto ) 0.8, Sodium Level 142, Potassium Level 4.4, Chloride Level 104, Carbon Dioxide Level 25, Anion Gap 13, Blood Urea Nitrogen 17, Creatinine 1.6H, Estimat Glomerular Filtration Rate 45.8, Glucose Level 322H, Calcium Level 9.1 Height (Feet): 5 Height (Inches): 4.00 Weight (Pounds): 170 Cardiovascular: normal rate Respiratory/Chest: lungs clear Abdomen: tender - POPPY FOX Jun 01, 2016 14:45
[2016-06-01 16:18] VITALS: BP 123/81
[2016-06-01 20:00] VITALS: BP 152/96
[2016-06-01] MEDS: QUEtiapine 200mg tab ORAL SCH (21:24)
[2016-06-01 23:54] VITALS: BP 101/69
[2016-06-02] MEDS: NovoLOG Insulin Flexpen SUBQ SCH ×2 (06:22→12:20)
[2016-06-02 08:16] VITALS: BP 138/87
[2016-06-02] MEDS: Aspirin EC 81mg tab ORAL SCH (09:01)
[2016-06-02 09:02] VITALS: BP 138/87
[2016-06-02] MEDS: Losartan 50mg tab ORAL SCH (09:02)
--- NOTE | 2016-06-02 12:17 | GI Progress Note ---
Assessment/Plan Problems: (1) Fatty liver ICD Codes: K76.0 - Fatty (change of) liver, not elsewhere classified SNOMED: 557426711 (2) HIV (human immunodeficiency virus infection) ICD Codes: Z21 - Asymptomatic human immunodeficiency virus [HIV] infection status SNOMED: 08512211 (3) Abdominal pain ICD Codes: R10.9 - Unspecified abdominal pain SNOMED: 61539717 Qualifiers: Qualified Codes: R10.31 - Right lower quadrant pain (4) Diarrhea ICD Codes: R19.7 - Diarrhea, unspecified SNOMED: 22814137 Qualifiers: Qualified Codes: R19.7 - Diarrhea, unspecified (5) Vomiting ICD Codes: R11.10 - Vomiting, unspecified SNOMED: 768080535, 25983999 Qualifiers: Qualified Codes: R11.2 - Nausea with vomiting, unspecified (6) IBS (irritable bowel syndrome) ICD Codes: K58.9 - Irritable bowel syndrome without diarrhea SNOMED: 19598599, 20328834 (7) GERD (gastroesophageal reflux disease) ICD Codes: K21.9 - Gastro-esophageal reflux disease without esophagitis SNOMED: 520780325 Status: stable Status Narrative Discussed with Dr. Crain. Assessment/Plan APCT reviewed >> No evidence of acute abdominopelvic disease or focal solid visceral parenchymal abnormality, limited by lack of IV contrast. Subtle abnormalities may be missed. Hepatosplenomegaly. Hepatic steatosis. See full report. cdiff negative elevated lipase >> now normal s/p fibroid scan >> stage III fibrosis hep panel negative ok for DC per GI standpoint, will fu as outpatient ADA diet, tolerating ST eval reviewed, to fu as outpatient DM mgmt pain mgmt H2 fu labs Subjective Subjective abdominal pain resolved wants to go home Objective Last 24 Hour Vital Signs Date Time Temp Pulse Resp B/P Pulse Ox O2 Delivery O2 Flow Rate FiO2 06/02/16 09:02 138/87 06/02/16 08:16 97.7 101 20 138/87 97 Room Air 06/01/16 23:54 06/01/16 21:25 152/96 06/01/16 20:00 97.7 92 18 152/96 93 Room Air 06/01/16 16:18 97.6 85 19 123/81 95 Room Air 06/01/16 14:38 97.3 Intake and Output 06/01/16 06/02/16 18:59 06:59 Intake Total 745 ml 180 ml Balance 745 ml 180 ml Intake Oral 520 ml 180 ml IV Total 225 ml # Voids 4 3 # Bowel Movements 1 Height (Feet): 5 Height (Inches): 4.00 Weight (Pounds): 170 General Appearance: no apparent distress, alert Cardiovascular: normal rate Abdominal Exam: normal bowel sounds, non tender, soft, distended Extremities: normal range of motion Lynette Barajas N.P. Jun 02, 2016 12:17
--- NOTE | 2016-06-02 12:26 | Consultation ---
Consult Note Assessment/Plan Dc dictated # [id number] POPPY SONG Jun 02, 2016 12:26
--- NOTE | 2016-06-03 04:38 | Discharge Summary ---
DATE OF ADMISSION: 05/29/2016 DATE OF DISCHARGE: 06/02/2016 CHIEF COMPLAINT: Abdominal pain. HISTORY OF PRESENT ILLNESS: This is a 51-year-old male with history of fatty liver and human immunodeficiency virus, who came to the emergency room with right upper quadrant abdominal pain and also had diarrhea. The patient was diagnosed with acute gastroenteritis. HOSPITAL COURSE: The patient was seen by Dr. Crain in gastrointestinal consultation. He was found to have acute on chronic renal failure as a result of volume depletion. His BUN and creatinine were 25 and 2.2 upon admission, as of 06/01/2016 the BUN was down to 17 with a creatinine of 1.6. The patient also had diarrhea, which improved. The patient's diet was advanced. Initially, he was on antiemetics, however, finally his symptoms resolved and the patient was sent home in stable condition. DISCHARGE DIAGNOSES: 1. Acute gastroenteritis. 2. History of human immunodeficiency virus. 3. History of fatty liver. 4. History of irritable bowel syndrome. 5. History of gastroesophageal reflux disease. 6. Acute on chronic renal failure. Paramjit Marquez M.D. DR: JON JOB#: [id number] CC:
== END 2016-06-02 14:16 | disposition home or self-care (01) | DRG 682 ==
LOC: EMR 21:28 → 4E 21:30 → EDBEDREQ 21:38
DX: N17.9 Acute kidney failure, unspecified (principal); B20 Human immunodeficiency virus [HIV] disease; E11.21 Type 2 diabetes mellitus with diabetic nephropathy; K52.9 Noninfective gastroenteritis and colitis, unspecified; K76.0 Fatty (change of) liver, not elsewhere classified; E86.0 Dehydration; F31.9 Bipolar disorder, unspecified; K58.9 Irritable bowel syndrome, unspecified; K21.9 Gastro-esophageal reflux disease without esophagitis; E86.9 Volume depletion, unspecified; E11.9 Type 2 diabetes mellitus without complications; F17.200 Nicotine dependence, unspecified, uncomplicated; N18.9 Chronic kidney disease, unspecified; Z79.4 Long term (current) use of insulin; J45.909 Unspecified asthma, uncomplicated
CPT/HCPCS: 36415; 74176; 74230; 80048; 80053; 80178; 81003; 82150; 82962; 83690; 85025; 85610; 85730; 86705; 86709; 86803; 87081; 87324; 87340; 93005; J1815; J2405; J2765

== ENCOUNTER 2016-06-09 13:38 | Outpatient (CLI) | payer MEDICARE, MEDICAID ==
[~2016-06-09 13:38] MED LIST changes: +DIAZEPAM10 MG ORAL; +FLONASE ALLERG9.9 ML NS; +NOVOLOG100 UNIT/4 SQ; +QUETIAPINE FUM200 MG ORAL; +triumeq ORAL
[2016-06-09] MEDS ORDERED: KLONOPIN1 MG ORAL (13:59)
[2016-06-09 14:00] VITALS: BP 145/100
--- NOTE | 2016-06-09 14:42 | GI Progress Note ---
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 SNOMED: 27106523, 18228188 (2) Fatty liver ICD Codes: K76.0 - Fatty (change of) liver, not elsewhere classified SNOMED: 384389663 (3) HIV (human immunodeficiency virus infection) ICD Codes: Z21 - Asymptomatic human immunodeficiency virus [HIV] infection status SNOMED: 51531723 (4) Diabetes 1.5, managed as type 1 ICD Codes: E13.9 - Other specified diabetes mellitus without complications SNOMED: 926907621 (5) Transaminitis ICD Codes: R74.0 - Nonspec elev of levels of transamns & lactic acid dehydrgnse SNOMED: 163626777 (6) Abdominal bloating ICD Codes: R14.0 - Abdominal distension (gaseous) SNOMED: 238350032 Status: stable Status Narrative Seen with Dr. Crain. Assessment/Plan pending BT @ [facility] r/o SIBO referred to endocrine for DM mgmt, suggested use of metformin for HIV lipodystrophy referred to HIV MD, suggest change in antiretroviral medications for HIV lipodystrophy RTC after procedure Subjective Subjective lower abdominal pain, mild abdominal distention/bloating diarrhea x8/daily forgetful fatigue Objective Last 24 Hour Vital Signs Date Time Temp Pulse Resp B/P Pulse Ox O2 Delivery O2 Flow Rate FiO2 06/09/16 14:00 98.6 94 18 145/100 General Appearance: no apparent distress, alert Cardiovascular: normal rate Respiratory/Chest: normal breath sounds, no respiratory distress Abdominal Exam: normal bowel sounds, distended, hepatomegaly Extremities: normal range of motion Lynette Barajas NHimanshuPHimanshu June 09, 2016 14:42
== END 2016-06-09 16:00 | disposition home or self-care (01) ==
LOC: PAN 13:38
DX: K76.0 Fatty (change of) liver, not elsewhere classified (principal); B20 Human immunodeficiency virus [HIV] disease; Z21 Asymptomatic human immunodeficiency virus [HIV] infection status; E13.9 Other specified diabetes mellitus without complications; R74.0 Nonspecific elevation of levels of transaminase and lactic acid dehydrogenase [LDH]; R14.0 Abdominal distension (gaseous); R10.30 Lower abdominal pain, unspecified; R19.7 Diarrhea, unspecified; R53.83 Other fatigue
CPT/HCPCS: 99211

== ENCOUNTER 2016-06-16 13:35 | Outpatient (CLI) | payer MEDICARE, MEDICAID ==
[2016-06-16 13:55] VITALS: BP 150/114
--- NOTE | 2016-06-16 14:07 | GI Progress Note ---
Assessment/Plan Problems: (1) Transaminitis ICD Codes: R74.0 - Nonspec elev of levels of transamns & lactic acid dehydrgnse SNOMED: 893404524 (2) Abdominal bloating ICD Codes: R14.0 - Abdominal distension (gaseous) SNOMED: 482417472 (3) Fatty liver ICD Codes: K76.0 - Fatty (change of) liver, not elsewhere classified SNOMED: 880028379 (4) IBS (irritable bowel syndrome) ICD Codes: K58.9 - Irritable bowel syndrome without diarrhea SNOMED: 84244185, 56828067 (5) GERD (gastroesophageal reflux disease) ICD Codes: K21.9 - Gastro-esophageal reflux disease without esophagitis SNOMED: 696869033 (6) Abdominal pain ICD Codes: R10.9 - Unspecified abdominal pain SNOMED: 23397982 (7) Diarrhea ICD Codes: R19.7 - Diarrhea, unspecified SNOMED: 16869993 Status: stable Status Narrative Discussed with Dr. Crain. Assessment/Plan pending BT @ [facility] r/o SIBO rx cholestyramine BID rx dexilant referred to endocrine for DM mgmt, suggested use of metformin for HIV lipodystrophy referred to HIV MD, suggest change in antiretroviral medications for HIV lipodystrophy RTC after BT procedure Subjective Subjective abdominal pain - LUQ diarrhea nausea fatigue hoarseness Objective Last 24 Hour Vital Signs Date Time Temp Pulse Resp B/P Pulse Ox O2 Delivery O2 Flow Rate FiO2 06/16/16 13:55 98.7 110 18 150/114 General Appearance: no apparent distress, alert Cardiovascular: normal rate Respiratory/Chest: normal breath sounds, no respiratory distress Abdominal Exam: distended, hepatomegaly Extremities: normal range of motion Lynette Barajas NSarah June 16, 2016 14:07
--- NOTE | 2016-06-16 17:19 | IOP Daily Group Progress Note ---
IOP Daily Group Progress Note Treatment Plan/Target Problem: Date: June 16, 2016 Problem: depression Group Reflections - Tuesday: group 3 (11:30am-12:15pm) Therapy Focus/Approach of Group: symptoms Goal(s) of Group: anxiety reduction, coping tools for symptoms, identify mood, identify triggers to symptoms, impact of current issues on mood, stress reduction, symptom management Observations: agitated, anxious, depressed mood, distracted, participated, restless Staff Intervention: assessed for safety/suicidality, assessed pt's current mood , facilitated discussion Staff Intervention: Therapist asked patients to share their feelings and state of their current mood , as well as any thoughts or concerns that came up during the week. Therapist offered a safe environment for patients to share with each other and assessed for HI, SI, and safety. Response/Progress Noted: Patient described several issues affecting him physically, including a pain in his side and "buzzing in my head." He did say he can lessen the noise by listening to the "sound of rain" or singing. He was open to solutions offered by others in the group. He said he worries "all the time" and has a difficult time relaxing, but did disclose he had found a better path toward "patience and acceptance." Jorge Vasques [employer] June 16, 2016 17:19
== END 2016-06-16 14:07 | disposition home or self-care (01) ==
LOC: PAN 13:35
DX: R74.0 Nonspecific elevation of levels of transaminase and lactic acid dehydrogenase [LDH] (principal); R14.0 Abdominal distension (gaseous); K76.0 Fatty (change of) liver, not elsewhere classified; K58.9 Irritable bowel syndrome, unspecified; K21.9 Gastro-esophageal reflux disease without esophagitis; R10.9 Unspecified abdominal pain; R19.7 Diarrhea, unspecified; R11.0 Nausea
CPT/HCPCS: 99211

== ENCOUNTER 2017-05-27 10:05 | Emergency (ER) | payer MEDICARE, MEDICAID ==
[~2017-05-27] VITALS: Ht 165.1 cm; Wt 77.6 kg
[~2017-05-27 10:05] MED LIST changes: +LITHIUM CARBON150 MG ORAL; +[UNRECOGNIZED DRUG - OTHER] SUBQ
--- NOTE | 2017-05-27 10:37 | Emergency Room Report ---
History of Present Illness General Chief Complaint: Abnormal Labs Source: Patient Present Illness HPI Patient presents with complaints of elevated glucose Patient's blood sugar was reading at 370 on his glucometer Patient denies any change in medication He does report eating a croissant in the morning which is unusual for him he also feels that he is under increased stress which at times does increase his glucose denies any chest pain or shortness of breath Denies any back or flank pain and denies any dysuria or frequency Allergies: Coded Allergies: No Known Allergies (Unverified , 06/15/13) Patient History Past Medical History: see triage record Pertinent Family History: none Reviewed Nursing Documentation: PMH: Agreed; PSxH: Agreed Nursing Documentation-PMH Hx Cardiac Problems: No - HIV positive Hx Hypertension: Yes Hx Pacemaker: No Hx Asthma: Yes Hx COPD: No Hx Diabetes: Yes Hx Cancer: No Hx Gastrointestinal Problems: Yes - fatty liver/HIV dystrophy Hx Dialysis: No - Liver disease Hx Neurological Problems: No Hx Cerebrovascular Accident: No Hx Seizures: No Review of Systems All Other Systems: negative except mentioned in HPI Physical Exam Vital Signs Date Time Temp Pulse Resp B/P (MAP) Pulse Ox O2 Delivery O2 Flow Rate FiO2 05/27/17 10:08 98.3 108 20 148/97 95 Room Air 98.2 Sp02 EP Interpretation: reviewed, normal General Appearance: well appearing, no apparent distress Head: normocephalic, atraumatic Eyes: bilateral eye PERRL, bilateral eye EOMI ENT: hearing grossly normal, normal pharynx, TMs + canals normal, uvula midline Neck: full range of motion, supple, no meningismus, no bony tend Respiratory: lungs clear, normal breath sounds, no rhonchi, no respiratory distress, no retraction, no accessory muscle use Cardiovascular #1: normal peripheral pulses, regular rate, rhythm, no edema, no gallop, no JVD, no murmur Gastrointestinal: normal bowel sounds, non tender, soft, no mass, no organomegaly, non-distended, no guarding, no hernia, no pulsatile mass, no rebound Genitourinary: no CVA tenderness Musculoskeletal: normal inspection Neurologic: oriented x3, responsive, weight tester III-XII nml as tested, motor strength/ tone normal, sensory intact Psychiatric: mood/affect normal Skin: normal color, no rash, warm/dry, palpation normal Lymphatic: normal inspection, no adenopathy Medical Decision Making Diagnostic Impression: Primary Impression: Hyperglycemia ER Course Multiple differentials including but not limited to, infectious, acidosis and dehydration entertained Patient was requested for IV hydration and low-dose insulin However at this time patient's recheck of his initial Accu-Chek reveals reading of 265 Patient states that he has been trending downward at this time does not want to have any further workup or intervention Patient has close monitoring at this time is awake and alert and will have initial conservative outpatient trial Last Vital Signs Date Time Temp Pulse Resp B/P (MAP) Pulse Ox O2 Delivery O2 Flow Rate FiO2 05/27/17 10:08 98.3 108 20 148/97 95 Room Air 98.2 Status: improved Disposition: HOME, SELF-CARE Condition: Improved Additional Instructions: Patient is provided with the discharge instructions notified to follow up with primary doctor in the next 2-3 days otherwise return to the er with any worsening symptoms. Please note that this report is being documented using [employer] technology. This can lead to erroneous entry secondary to incorrect interpretation by the dictating instrument. Bacilio Pyle DO May 27, 2017 10:37
[2017-05-27 11:27] VITALS: BP 140/98
[2017-05-27 11:28] VITALS: BP 148/97
== END 2017-05-27 11:28 | disposition home or self-care (01) ==
LOC: EMR 11:25
DX: E11.65 Type 2 diabetes mellitus with hyperglycemia (principal); I10 Essential (primary) hypertension; J45.909 Unspecified asthma, uncomplicated
CPT/HCPCS: 82962; 99283